=== PATIENT | female | born 1960 | race Caucasian/White ===

== ENCOUNTER → 2017-03-06 | Outpatient (CLI) | payer OTHER | LOC: FIMAGING 09:43 | PROVIDERS: ATTEND Family Medicine | DX: Z12.31 Encounter for screening mammogram for malignant neoplasm of breast (principal) | CPT/HCPCS: G0202 ==

== ENCOUNTER → 2017-08-08 | Outpatient (CLI) | payer OTHER | LOC: FLAB 17:24 | PROVIDERS: ATTEND Physician Assistant | DX: M20.11 Hallux valgus (acquired), right foot (principal) ==

== ENCOUNTER → 2017-09-13 | Outpatient (CLI) | payer OTHER | LOC: FIMAGING 13:53 | PROVIDERS: ATTEND Podiatrist | DX: M79.9 Soft tissue disorder, unspecified (principal) ==

== ENCOUNTER 2017-10-09 11:01 | Day surgery (SDC) | payer OTHER ==
[2017-10-09] MEDS ORDERED: LR 1,000 ML IV ONE (11:10)
[2017-10-09] MEDS ORDERED: LIDOCAINE 1% 2 ML INJ ID PRN (11:10)
[2017-10-09 11:49] VITALS: PULSE 70
[2017-10-09] MEDS ORDERED: ceFAZolin 2 GM/SWFI 2 GM/20 ML SYR IVP ONE (11:59)
--- NOTE | 2017-10-09 12:01 | PDHPUP ---
History & Physical Update H&P update statement: This history and physical update is based on an assessment of the patient which was completed after admission or registration (within 24 hours), but prior to the surgery/procedure. NO CHANGE H&P changes: NO CHANGE
[2017-10-09] MEDS ORDERED: LIDOCAINE 1% 300 MG/30 ML SDV ONE (12:16)
[2017-10-09] MEDS ORDERED: BACITRACIN 50,000 UNITS/10 ML SYR IRR ONE (12:16)
[2017-10-09] MEDS ORDERED: ROPIVACAINE HCL 150 MG/30 ML INJ ONE (12:17)
[2017-10-09] MEDS ORDERED: BUPIVACAINE 0.5% 30 ML SDV ONE (12:17)
[2017-10-09] MEDS ORDERED: CYANO/VITAMIN B12 1000 MCG/ML VIAL ONE (12:17)
[2017-10-09] MEDS ORDERED: DEXAMETHASONE 4 MG/ML VIAL ONE (12:17)
[2017-10-09] MEDS ORDERED: MIDAZOLAM 2 MG/2 ML VIAL IVP ONE (12:21)
--- NOTE | 2017-10-09 12:22 | PDANEPAE ---
ANE History of Present Illness r foot growth ANE Past Medical History - Cardiovascular History Hx Hypertension: No Hx Arrhythmias: No Hx Chest Pain: No Hx Coronary Artery / Peripheral Vascular Disease: No Hx CHF / Valvular Disease: No Hx Palpitations: No Cardiovascular History Comment: hyperlipidemia - Pulmonary History Hx COPD: No Hx Asthma/Reactive Airway Disease: No Hx Recent Upper Respiratory Infection: No Hx Oxygen in Use at Home: No Hx Sleep Apnea: No Sleep Apnea Screening Result - Last Documented: Negative - Neurologic History Hx Cerebrovascular Accident: No Hx Seizures: No Hx Dementia: No - Endocrine History Hx Diabetes: No Endocrine History Comment: thyroid nodule. sjogrens syndrome- newly diagnosed - Renal History Hx Renal Disorders: No - Liver History Hx Hepatic Disorders: No - Neurological & Psychiatric Hx Hx Neurological and Psychiatric Disorders: No - Cancer History Hx Cancer: No - Congenital Disorder History Hx Congenital Disorders: No - GI History Hx Gastrointestinal Disorders: Yes Gastrointestinal History Comment: reflux- on meds. hx of colonoscopy. colon polyps. diverticulosis - Other Health History Other Health History: mild lupus- recently diagnosed. wears bilateral hearing aides. wears glasses - Chronic Pain History Chronic Pain: No - Surgical History Prior Surgeries: appy. d&c. colonoscopy ANE Review of Systems Review of Systems: - Exercise capacity METS (RN): 4 METS ANE Patient History - Allergies Allergies/Adverse Reactions: No Known Allergies Allergy (Verified 10/02/17 16:21) - Home Medications Home Medications: Atorvastatin Calcium 10/02/17 [Last Taken Unknown] Ranitidine HCl 10/02/17 [Last Taken Unknown] - NPO status NPO Since - Liquids (Date): 10/09/17 NPO Since - Liquids (Time): 09:00 NPO Since - Solids (Date): 10/08/17 NPO Since - Solids (Time): 23:55 - Smoking Hx Smoking Status: Former smoker - Family Anes Hx Family Hx Anesthesia Complications: none ANE Labs/Vital Signs - Vital Signs Blood Pressure: 134/89 Heart Rate: 70 Respiratory Rate: 16 O2 Sat (%): 93 Height: 160.02 cm Weight: 69.4 kg ANE Physical Exam - Airway Neck exam: FROM Mallampati Score: Class 2 Mouth exam: normal dental/mouth exam - Pulmonary Pulmonary: no respiratory distress - Cardiovascular Cardiovascular: regular rate and rhythym - ASA Status ASA Status: II ANE Anesthesia Plan Anesthesia Plan: MAC
[2017-10-09] MEDS ORDERED: CALCIUM GLUCONATE 1 GM in NS 50 ML IV ONE (12:30)
[2017-10-09] MEDS ORDERED: PROPOFOL 200 MG/20 ML VIAL ONE (12:32)
[2017-10-09] MEDS ORDERED: fentaNYL 100 MCG/2 ML INJ ONE (12:32)
[2017-10-09] MEDS ORDERED: LIDOCAINE 2% 5 ML SDV ONE (12:33)
[2017-10-09] MEDS ORDERED: fentaNYL 100 MCG/2 ML INJ IVP PRN (13:23)
[2017-10-09] MEDS ORDERED: HYDROmorphONE/DILAUDID 1 MG/ML INJ IVP PRN (13:23)
[2017-10-09] MEDS ORDERED: NALOXONE HCL 0.4 MG/ML INJ IVP PRN (13:23)
--- NOTE | 2017-10-09 14:19 | POSTOPPROG ---
Post Op Note Date of Operation: 10/09/17 Surgeon: Pratibha Yen Supervisor [employer]estock [employer]: none Anesthesiologist: Dr. Kelvin Faulkner Anesthesia: LMA Pre-op Diagnosis: soft tissue tumor plantar first met head right foot Post-op Diagnosis: same. suspect fibroma Indication: pain. tumor Procedure: excision of tumor Findings: dense fibrous soft tissue mass 2 -3 cm in size Inf/Abcess present in the surg proc area at time of surgery?: No Depth: Deep Incisional (Fascial) EBL: Minimal Complications: none Drains: Constavac, Other (silastic drain)
--- NOTE | 2017-10-09 14:21 | POSTANESTH ---
Post Anesthetic Evaluation Cardiovascular Status: Normal, Stable Respiratory Status: Normal, Stable Level of Consciousness/Mental Status: Can Participate in Eval Pain Control: Adequate, Prn Tx Ordered Nausea/Vomiting Control: Adequate, Prn Tx Ordered Complications Possibly Related to Anesthesia: None Noted
[2017-10-09 14:26] VITALS: TEMP 97.5
[2017-10-09 16:11] VITALS: BP 125/84; RESP 16; O2SAT 97
--- NOTE | 2017-10-09 16:38 | GOP ---
[f rep st] OPERATIVE REPORT DATE OF OPERATION: 10/09/2017 SURGEON: Pratibha Yen DPM ANESTHESIA: MAC. ANESTHESIOLOGIST: Kelvin. PREOPERATIVE DIAGNOSIS: Soft tissue mass tumor plantar aspect 1st metatarsal head, right foot. POSTOPERATIVE DIAGNOSIS: Soft tissue mass tumor plantar aspect 1st metatarsal head, right foot. PROCEDURE PERFORMED: Excision of soft-tissue mass tumor, right foot. FINDINGS: Firm soft tissue mass measuring 2-3 cm in size, approximately 1 cm thick, consistent with that of a fibroma. INDICATIONS: Significant pain plantar aspect 1st metatarsal head, right foot. Palpable subcutaneous soft tissue mass, mobile. Ultrasound study revealing presence of a soft tissue mass superficial to the flexor tendon. The patient would like to proceed with surgery. DESCRIPTION OF PROCEDURE: Patient was brought into the operating room, placed on the operating table in the supine position. Intravenous sedation administered by the anesthesiologist. A posterior tib ial and peripheral nerve block was obtained utilizing a total of 15 cc of a one-to-one mix of 1% lido alejandra plain, 0.5% Marcaine plain, and 0.5% ropivacaine plain. The lower extremity was prepped and dr aped in the usual sterile manner. After it was elevated, it was exsanguinated with an Esmarch bandag e, and ankle tourniquet inflated to 240 mmHg and the procedure was begun. Webril padding utilized un silvia the ankle cuff. Attention was directed towards the plantar aspect of the 1st metatarsal head, where a linear incision was created centrally between the tibial and fibular sesamoid measuring approximately 3 cm in length . Incision was carefully deepened with care of neurovascular structures and to cauterize bleeders. Incision was deepened through the adipose tissue and there a fibrous shiny white soft tissue mass was clearly identified and carefully freed from the surrounding soft tissue structures as well as planta r aspect of the metatarsal head, keeping the tendon sheath intact. There was no interruption with th e sesamoids or other structures. Soft tissue mass was well delineated from all surrounding soft tiss ue. Its stalk appeared to be coming from the distal aspect of the 1st web space area. Transected an d this section was sent into Pathology as well, as well as once the soft tissue mass was excised in t bobby, it was sent to Pathology for gross and microscopic examination. The wound was copiously irrigat ed with bacitracin irrigation solution. Tourniquet was released and a normal hyperemic response was noted to all digits. A separate stab incision was made along the natural skin line just proximal to the incision for exiting of a silastic drain which was secured with 4-0 Prolene. Subcutaneous closur e achieved with 4-0 Monocryl, and the skin was closed with 4-0 on 3-0 Prolene in a horizontal mattres s, vertical mattress, and single interrupted suture fashion. Dressings include Xeroform, 4 x 4's, fl uffs, Kimberly reinforced with tape, and an Elbert bandage. The patient tolerated the procedure and anesth esia well, left the operating room with vital signs stable and vascular status intact to all digits. There were no complications. Pathology specimen sent for gross and microscopic examination: The larger mass, as well as a smaller section of the proximal stalk. Additional injectables included 5 cc of the ropivacaine, Marcaine li docaine mixture. In postoperative recovery the patient was doing well. Her will be sil g her transportation home. She was fitted with a cryo cuff. She is to follow up in our office in 2 days for wound check and for removal of the drain. Prognosis is good. She has been instructed to be ar no weight on the forefoot. /[id number]/MODL
== END 2017-10-09 16:18 | disposition home or self-care (01) ==
LOC: FSGY 11:01
PROVIDERS: ATTEND Podiatrist
PROC: 0JBQ0ZZ Excision of Right Foot Subcutaneous Tissue and Fascia, Open Approach (ICD-10-PCS; principal; 2017-10-09 12:45)
DX: M79.9 Soft tissue disorder, unspecified (principal); M79.671 Pain in right foot; E78.5 Hyperlipidemia, unspecified; M35.00 Sjogren syndrome, unspecified; Z87.891 Personal history of nicotine dependence
CPT/HCPCS: J0610; J0690; J1100; J2250; J2704; J2795; J3010; J3420

== ENCOUNTER → 2018-05-12 | Outpatient (CLI) | payer OTHER | LOC: FIMAGING 14:58 | PROVIDERS: ATTEND Obstetrics & Gynecology | DX: Z12.31 Encounter for screening mammogram for malignant neoplasm of breast (principal) ==

== ENCOUNTER → 2018-05-27 | Outpatient (CLI) | payer OTHER ==
[~2018-05-27] MED LIST: IOPAMIDOL (ISOVUE 370) 100 ML BTL IV ONE
== END ==
LOC: FIMAGING 17:17
PROVIDERS: ATTEND Internal Medicine
DX: E07.9 Disorder of thyroid, unspecified (principal)
CPT/HCPCS: Q9967